=== PATIENT | female | born 1970 | race Caucasian/White ===

== ENCOUNTER → 2020-10-22 | Day surgery (SDC) | payer OTHER ==
[~2020-10-22] VITALS: Ht 172.7 cm; Wt 56.7 kg
[~2020-10-22] MED LIST: BIOTIN5 MG PO; BLISOVI FE 1-21 EACH PO; CENTRUM ADULT120 MCG PO; HCTZ25 MG PO; POTASSIUM CHLO10 ME2 PO; VITAMIN D3125 MCG PO
[2020-10-22 07:43] LABS: HCG (URINE) SCREEN NEGATIVE (NEGATIVE)
[2020-10-22 07:56] LABS: HCT 37.6 % (37.0-47.0); HGB 12.4 g/dl (12.5-16.0); MCH 28.5 pg (25.0-31.0); MCV 86.4 fL (78.0-100.0); MPV 10.1 fL (6.0-9.5); RBC 4.35 M/uL (4.20-5.40); RDW 15.2 % (11.5-14.0); WBC 8.9 K/uL (4.0-10.5)
[2020-10-22 08:12] LABS: ALBUMIN 3.6 g/dL (3.4-5.0); BILIRUBIN - TOTAL 0.6 mg/dL (0.2-1.0); CREATININE 0.75 mg/dL (0.51-0.95); GLOBULIN (CALCULATION) 4.1 g/dL; POTASSIUM 3.2 mmol/L (3.5-5.1); TOTAL PROTEIN 7.7 g/dL (6.4-8.2)
== END | disposition home or self-care (01) ==
LOC: FAS 07:02
PROVIDERS: Surgery
DX: Z12.11 Encounter for screening for malignant neoplasm of colon (principal); F41.9 Anxiety disorder, unspecified; N89.8 Other specified noninflammatory disorders of vagina; N94.6 Dysmenorrhea, unspecified; D25.9 Leiomyoma of uterus, unspecified; M54.5 Low back pain; G89.29 Other chronic pain; I10 Essential (primary) hypertension; F32.9 Major depressive disorder, single episode, unspecified; Z79.899 Other long term (current) drug therapy
CPT/HCPCS: G0121; 36415; 80053; 84703; J1610; J2250; J2704; J7120

== ENCOUNTER → 2021-08-26 | Day surgery (SDC) | payer OTHER ==
[~2021-08-26] VITALS: Ht 172.7 cm; Wt 59.0 kg
[~2021-08-26] MED LIST changes: +ALDACTONE25 MG PO; +COLACE100 MG PO; +EFFEXOR XR37.5 MG PO; +IBUPROFEN800 M1 PO; +IRON325 M1 PO; +ONDANSETRON ODT4 MG PO; +PERCOCET 5-3251 EACH PO; +VITAMIN C500 M1 PO
[2021-08-26 08:26] LABS: HCG (URINE) SCREEN NEGATIVE (NEGATIVE)
[2021-08-26 08:56] LABS: HCT 39.2 % (37.0-47.0); HGB 12.3 g/dl (12.5-16.0); MCH 26.3 pg (25.0-31.0); MCHC 31.4 g/dL (32.0-36.0); MCV 83.9 fL (78.0-100.0); MPV 10.7 fL (6.0-9.5); RBC 4.67 M/uL (4.20-5.40); RDW 19.9 % (11.5-14.0); WBC 5.7 K/uL (4.0-10.5)
[2021-08-26 10:01] LABS: ALBUMIN 4.1 g/dL (3.4-5.0); BILIRUBIN - TOTAL 0.5 mg/dL (0.2-1.0); BUN/CREAT RATIO (CALC) 13.8 RATIO; CREATININE 0.8 mg/dL (0.51-0.95); GLOBULIN (CALCULATION) 4.4 g/dL; POTASSIUM 3.8 mmol/L (3.5-5.1); TOTAL PROTEIN 8.5 g/dL (6.4-8.2)
== END | disposition home or self-care (01) ==
LOC: FAS 07:57
PROVIDERS: Obstetrics & Gynecology
DX: N80.0 Endometriosis of uterus (principal); D25.9 Leiomyoma of uterus, unspecified; N73.6 Female pelvic peritoneal adhesions (postinfective); I10 Essential (primary) hypertension
CPT/HCPCS: 36415; 80053; 84703; 86850; 86900; 86901; J0690; J1100; J1644; J1885; J2250; J2405; J2550; J2704; J2710; J3010; J7120